=== PATIENT | female | born 1945 | race Caucasian/White ===

== ENCOUNTER 2020-03-12 12:17 | Inpatient (IN) ==
[2020-03-12] MEDS ORDERED: ONDANSETRON 4 MG/2 ML VIAL IV ONE (12:40)
--- NOTE | 2020-03-12 12:42 | Emergency Department Note ---
Nausea/Vomiting/Diarrhea HPI General Chief complaint: Nausea/Vomiting/Diarrhea Stated complaint: vomiting, diarrhea Time Seen by Provider: 03/12/20 12:19 Source: patient and family Mode of arrival: wheelchair Limitations: no limitations History of Present Illness HPI Narrative: Patient reports an abrupt onset of diarrhea and nausea that happened today. She arrives to the emergency department during my assessment complaining of chills and malaise. She does report that she has had a recent cough but denies shortness of breath. States that today she was forming her PT and developed chills body aches and had diarrhea. Had an episode of vomiting and vomited on her close. This patient's temperature during the HPI due to her statement of chills and got a temperature of 100 F oral. Related Data Home Medications Medication Instructions Recorded Confirmed metformin 1,000 mg PO BID 06/10/15 02/14/20 latanoprost 1 gtt OU HS 10/19/15 02/14/20 losartan 50 mg PO DAILY 08/17/18 02/14/20 amlodipine 5 mg tablet 10 mg PO DAILY tab 09/29/19 02/14/20 aspirin 81 mg tablet,delayed 81 mg PO QDAY 09/29/19 02/14/20 release atorvastatin 80 mg tablet 80 mg PO QDAY 09/29/19 02/14/20 bethanechol chloride 5 mg tablet 5 mg PO TID tab 09/29/19 02/14/20 clopidogrel 75 mg tablet 75 mg PO QDAY 09/29/19 02/14/20 escitalopram oxalate 10 mg tablet 10 mg PO QDAY 09/29/19 02/14/20 furosemide 20 mg tablet 20 mg PO QAM 09/29/19 02/14/20 gabapentin 100 mg capsule 200 mg PO QHS cap 09/29/19 02/14/20 insulin glargine 100 unit/mL 23 unit SUB-Q QHS ml 09/29/19 02/14/20 subcutaneous solution isosorbide mononitrate 30 mg 30 mg PO QAM 09/29/19 02/14/20 tablet,extended release 24 hr magnesium oxide 140 mg capsule 140 mg PO QDAY 02/14/20 02/14/20 nitroglycerin 0.4 mg sublingual 0.4 mg SUBLINGUAL Q5M PRN 02/14/20 02/14/20 tablet ropinirole 2 mg tablet 2 mg PO QDAY 02/14/20 02/14/20 Previous Rx's Medication Instructions Recorded albuterol sulfate 90 mcg/actuation 2 puff INHALATION .q4-6h PRN #8.5 g 09/29/19 aerosol inhaler Allergies Allergy/AdvReac Type Severity Reaction Status Date / Time pantoprazole AdvReac Unknown Diarrhea Verified 03/12/20 12:20 adhesive tape AdvReac Itching Verified 03/12/20 12:20 Review of Systems ROS ROS Narrative: Narrative: Constitutional: Reports fever, chills and sweats; Denies weakness Eyes: Denies eye discharge ENT ED: Denies throat pain Cardiovascular: Denies chest pain and palpitations Respiratory: Reports cough; Denies shortness of breath and phlegm Gastrointestinal: Reports as per HPI, nausea, vomiting and diarrhea Genitourinary: Denies dysuria Musculoskeletal: Reports as per HPI Integumentary: Denies rash and lesions Neurological: Reports as per HPI; Denies headache and numbness Endocrine: Reports fatigue Hematological/Lymphatic: Denies easy bleeding PFSH Narrative Patient History Narrative: Narrative: Medical/Surgical/Family History All Active Problems (Updated 03/13/20 @ 09:00 by SCOTTY Candelaria) Hypoxia (Acute) Pneumonia (Acute) Swelling of lower leg (Acute) Hyperglycemia due to type 2 diabetes mellitus (Acute) Cholelithiasis (Acute) Paresthesia of arm (Acute) Anxiety (Acute) Cough (Acute) Syncope (Acute) Dizziness (Acute) Palpitations (Acute) Chronic anticoagulation (Chronic) Diabetes mellitus type 2, uncontrolled, without complications (Chronic) Hypertension, essential (Chronic) Depression, major, recurrent, mild (Chronic) Status post cerebrovascular accident (Chronic) Anxiety, generalized (Chronic) Restless legs syndrome (RLS) (Chronic) Obesity (BMI 30.0-34.9) (Chronic) Glaucoma (Chronic) Medical History Anxiety, generalized (Chronic) Chronic anticoagulation (Chronic) clopidogrel Costalchondritis (Resolved) Depression, major, recurrent, mild (Chronic) Diabetes mellitus type 2, uncontrolled, without complications (Chronic) Esophageal stricture (Resolved) Glaucoma (Chronic) History of recurrent UTIs (Resolved) Hypertension, essential (Chronic) Obesity (BMI 30.0-34.9) (Chronic) Restless legs syndrome (RLS) (Chronic) Status post cerebrovascular accident (Chronic) right cerebellar; bilateral lacunar infarcts of basal ganglia Swelling of lower leg (Acute) TIA (transient ischemic attack) (Resolved) Surgical History History of carpal tunnel release (Acute) History of hysterectomy (Acute) History of tonsillectomy (Acute) S/P aortic valve replacement (Chronic) pig valve; Echo 07/18/18 unremarkable Social History Smoking Status: Former smoker Alcohol Intake Frequency: does not drink Substance Use: does not use Exam Narrative Narrative: Narrative: General Limitations: no limitations General appearance: Present alert and malaise Head Head: Present atraumatic and normocephalic Eye Eye: Present normal appearance and PERRL ENT ENT: Present normal exam and normal oropharynx Neck Neck: Present normal inspection and full ROM Chest Chest: Present normal inspection and symmetric chest wall rise; Absent tenderness Respiratory Respiratory: Present normal lung sounds bilaterally Cardiovascular Cardiovascular: Present regular rate and normal rhythm Adbominal Abdominal: Present soft and other (Patient denies abdominal pain nausea at this time. Main complaint during my assessment was malaise chills and body aches.); Absent tenderness, guarding and Bartholomew's sign Extremities Extremities: Present normal inspection and full ROM Back Back: Present normal inspection, CVA tenderness (R) and CVA tenderness (L) Neurological Neurological: Present alert and oriented X3 Psychiatric Psychiatric: Present normal affect Skin Skin: Present warm and dry Course Course Course Narrative: Patient does not appear to have symptoms of a viral nature. Possible pneumonia. Will perform basic labs and a chest x-ray to investigate for disease. Patient had a COVID test previously this year which was negative. Reports today's symptoms as noticeable today. Denies feeling ill yesterday. Reevaluation(s) Reevaluation #1: I was going to treat the patient out patiently for possible pneumonia. Patient's oxygen saturation was at 88 or 89 on room air would not maintain over 90% SPO2 without assistance of oxygen. Recommend that the patient be admitted observation due to low sats and check status tomorrow. Strays inconclusive for pneumonia (see report) Vital Signs Vital signs: Vital Signs Temperature 98.6 F 03/12/20 12:18 Pulse Rate 102 H 03/12/20 12:18 Respiratory Rate 03/12/20 12:18 Blood Pressure 142/95 03/12/20 12:18 Pulse Oximetry (%) 98 03/12/20 12:18 Temperature 98.9 F 03/13/20 07:26 Pulse Rate 66 03/13/20 03:49 Respiratory Rate 20 03/13/20 07:26 Blood Pressure 134/56 03/13/20 07:26 Pulse Oximetry (%) 95 03/13/20 07:26 MDM MDM Narrative Medical decision making narrative: Narrative: Lab Data Result diagrams: 03/13/20 05:25 03/13/20 05:25 Labs: Lab Results 03/12/20 03/12/20 03/12/20 Range/Units 12:50 12:50 12:50 WBC 11.9 H (4.50-11.00) K/mcL RBC 4.40 (3.59-5.38) M/mcL Hgb 12.1 (11.2-15.7) g/dL Hct 37.6 (34.1-44.9) % POC Hct 38.0 (36.0-48.0) % MCV 85.5 (80.0-100.0) fL MCH 27.5 (26.0-34.0) pg MCHC 32.2 (31.0-36.0) g/dL RDW 14.5 (11.5-14.5) % Plt Count 175 (140-440) K/mcL MPV 11.5 H (7.4-10.4) fL Gran % 83.9 H (38.0-78.0) % Lymph % (Auto) 10.2 L (15.5-49.0) % [place] % (Auto) 3.8 (1.0-12.0) % Eos % (Auto) 1.9 (0.0-7.0) % Baso % (Auto) 0.2 (0.0-2.0) % Gran # 10.02 H (1.80-8.00) K/mcL Lymph # (Auto) 1.22 L (1.50-4.80) K/mcL [place] # (Auto) 0.45 (0.10-0.90) K/mcL Eos # (Auto) 0.23 (0.00-0.70) K/mcL Baso # (Auto) 0.02 (0.00-0.30) K/mcL POC Sodium 139 (133-145) mmol/L Sodium 138 (133-145) mmol/L POC Potassium 4.5 (3.3-5.1) mmol/L Potassium 4.5 (3.3-5.1) mmol/L POC Chloride 99 (96-108) mmol/L Chloride 97 (96-108) mmol/L Carbon Dioxide 26 (22-30) mmol/L POC Total CO2 27 (22-30) mmol/L Anion Gap 15.0 (8-16) POC BUN 24 H (8-23) mg/dl BUN 23 (8-23) mg/dl Creatinine 1.3 H (0.6-1.1) mg/dl POC Creatinine 1.3 H (0.6-1.1) mg/dl GFR Calculation 40 Glucose 190 H (70-105) mg/dL POC Glucose 187 H (70-105) mg/dL Calcium 9.9 (8.6-10.4) mg/dl POC WB Ioniz Calcium 1.15 L (1.16-1.32) mmol/L Total Bilirubin 0.6 (0.0-1.0) mg/dL AST 13 (0-37) U/l ALT 9 (0-40) U/l Alkaline Phosphatase 94 (39-117) U/L Total Protein 7.3 (5.9-8.4) gm/dL Albumin 4.1 (3.2-5.2) gm/dL Globulin 3.2 (2.2-3.7) gm/dL Albumin/Globulin Ratio 1.3 (1.0-2.3) Procalcitonin 0.05 (<0.10) ng/mL Discharge Plan Patient/Caregiver Discharge Instructions Pt seen by SENIOR SALES MANAGER/PA only: No Clinical Impression: Hypoxia Pneumonia Qualifiers: Pneumonia type: due to unspecified organism Laterality: unspecified laterality Lung location: unspecified part of lung Qualified Code(s): J18.9 - Pneumonia, unspecified organism Patient Disposition: Xfer As Inpt ([facility]) Condition: Fair Discharge Date/Time: 03/12/20 19:52
[2020-03-12 13:00] LABS: POC Blood Urea Nitrogen 24 mg/dl (8-23); POC CO2 27 mmol/L (22-30); POC Calcium, Ionized 1.15 mmol/L (1.16-1.32); POC Chloride 99 mmol/L (96-108); POC Creatinine 1.3 mg/dl (0.6-1.1); POC Glucose, Random 187 mg/dL (70-105); POC Potassium 4.5 mmol/L (3.3-5.1); POC Sodium 139 mmol/L (133-145)
[2020-03-12] MEDS ORDERED: ACETAMINOPHEN 325 MG TABLET PO ONE (13:14)
[2020-03-12] MEDS ORDERED: 0.9 % SODIUM CHLORIDE 1,000 ML IV ONE (13:14)
[2020-03-12 13:47] LABS: Basophils # (Auto) 0.02 K/mcL (0.00-0.30); Basophils % (Auto) 0.2 % (0.0-2.0); Eosinophils # (Auto) 0.23 K/mcL (0.00-0.70); Eosinophils % (Auto) 1.9 % (0.0-7.0); Granulocytes % (Auto) 83.9 % (38.0-78.0); Hematocrit 37.6 % (34.1-44.9); Hemoglobin 12.1 g/dL (11.2-15.7); Lymphocytes # (Auto) 1.22 K/mcL (1.50-4.80); Lymphocytes % (Auto) 10.2 % (15.5-49.0); Mean Cell Volume 85.5 fL (80.0-100.0); Mean Corpuscular HGB Conc 32.2 g/dL (31.0-36.0); Mean Platelet Volume 11.5 fL (7.4-10.4); Monocytes # (Auto) 0.45 K/mcL (0.10-0.90); Monocytes % (Auto) 3.8 % (1.0-12.0); Platelet Count 175 K/mcL (140-440); Red Cell Distribution Width 14.5 % (11.5-14.5); WBC 11.9 K/mcL (4.50-11.00)
[2020-03-12 14:05] LABS: ALT/SGPT 9 U/l (0-40); AST/SGOT 13 U/l (0-37); Albumin 4.1 gm/dL (3.2-5.2); Albumin/Globulin Ratio 1.3 (1.0-2.3); Alkaline Phosphatase 94 U/L (39-117); Bilirubin,Total 0.6 mg/dL (0.0-1.0); Blood Urea Nitrogen 23 mg/dl (8-23); Calcium 9.9 mg/dl (8.6-10.4); Carbon Dioxide 26 mmol/L (22-30); Chloride 97 mmol/L (96-108); Globulin 3.2 gm/dL (2.2-3.7); Glomerular Filtration Rate 40; Glucose 190 mg/dL (70-105)
--- NOTE | 2020-03-12 14:22 | XRay Report ---
CLINICAL INFORMATION: fever COMPARISON: 09/29/2019 FINDINGS: Mild cardiomegaly is unchanged. Pacemaker leads in stable satisfactory position. Mediastinum and pulmonary vessels are normal. There is minor scattered scarring and/or atelectasis in the mid and lower lungs. No definite infiltrate. IMPRESSION: No definite infiltrate. If there is strong clinical support for pneumonia, suggest two-view upright chest x-ray in one to two days Interpreted and Authenticated by: Antoine Alavrez 03/12/20
[2020-03-12] MEDS ORDERED: AZITHROMYCIN 250 MG TABLET PO ONE (14:42)
[2020-03-12] MEDS ORDERED: IPRATROPIUM/ALBUTEROL 3 ML AMPUL.NEB NEB ONE (14:55)
[2020-03-12] MEDS ORDERED: rOPINIRole 1 MG TABLET PO ONE (15:47)
--- NOTE | 2020-03-12 18:40 | Internal Med History&Physical ---
HPI History of Present Illness Patient information: Note initiated : 03/12/20 at 6:39 pm Service Date, if different from initiated Date: [] Patient: Tianna Reyes a 74 y/o F admitted on for Vomiting, Diarrhea. Chief Complaint: [] History of present illness: Ms. Reyes is a 74 year old F with a history of CKD and hypertension who presented to the ER due to nausea and vomiting. As per patient, today patient developed nausea, vomiting, and diarrhea. She had 3 watery bowel movements. But she denies abdominal pain. She also complains of having coughing for days with a small amount of sputum. In the ER, she was found to have mild fever 100, and oxygen desaturation. Chest x-ray showed no evidence of infiltrate. But as per ER Valentino Alejandre, radiologist felt she could have a clinical pneumonia. When I saw this patient in the ER, other than the symptoms mentioned above, patient denied headache, dizziness, chest pain, shortness of breath, abdominal pain, or dysuria. Review of Systems All systems: reviewed and no additional remarkable complaints except as stated PFSH PFSH All Active Problems Swelling of lower leg (Acute) Hyperglycemia due to type 2 diabetes mellitus (Acute) Cholelithiasis (Acute) Paresthesia of arm (Acute) Anxiety (Acute) Cough (Acute) Syncope (Acute) Dizziness (Acute) Palpitations (Acute) Chronic anticoagulation (Chronic) Diabetes mellitus type 2, uncontrolled, without complications (Chronic) Hypertension, essential (Chronic) Depression, major, recurrent, mild (Chronic) Status post cerebrovascular accident (Chronic) Anxiety, generalized (Chronic) Restless legs syndrome (RLS) (Chronic) Obesity (BMI 30.0-34.9) (Chronic) Glaucoma (Chronic) Medical History Anxiety, generalized (Chronic) Chronic anticoagulation (Chronic) clopidogrel Costalchondritis (Resolved) Depression, major, recurrent, mild (Chronic) Diabetes mellitus type 2, uncontrolled, without complications (Chronic) Esophageal stricture (Resolved) Glaucoma (Chronic) History of recurrent UTIs (Resolved) Hypertension, essential (Chronic) Obesity (BMI 30.0-34.9) (Chronic) Restless legs syndrome (RLS) (Chronic) Status post cerebrovascular accident (Chronic) right cerebellar; bilateral lacunar infarcts of basal ganglia Swelling of lower leg (Acute) TIA (transient ischemic attack) (Resolved) Surgical History History of carpal tunnel release (Acute) History of hysterectomy (Acute) History of tonsillectomy (Acute) S/P aortic valve replacement (Chronic) pig valve; Echo 07/18/18 unremarkable Social History smoking status: Former smoker alcohol intake frequency: does not drink substance use type: does not use MEDS/ALLERGIES Home Medications and Allergies Home Medications Medication Instructions Recorded Confirmed Type metformin 1,000 mg PO BID 06/10/15 02/14/20 History latanoprost 1 gtt OU HS 10/19/15 02/14/20 History losartan 50 mg PO DAILY 08/17/18 02/14/20 History albuterol sulfate 90 mcg/actuation 2 puff INHALATION .q4-6h PRN #8.5 g 09/29/19 09/29/19 Rx aerosol inhaler amlodipine 5 mg tablet 10 mg PO DAILY tab 09/29/19 02/14/20 History aspirin 81 mg tablet,delayed 81 mg PO QDAY 09/29/19 02/14/20 History release atorvastatin 80 mg tablet 80 mg PO QDAY 09/29/19 02/14/20 History bethanechol chloride 5 mg tablet 5 mg PO TID tab 09/29/19 02/14/20 History clopidogrel 75 mg tablet 75 mg PO QDAY 09/29/19 02/14/20 History escitalopram oxalate 10 mg tablet 10 mg PO QDAY 09/29/19 02/14/20 History furosemide 20 mg tablet 20 mg PO QAM 09/29/19 02/14/20 History gabapentin 100 mg capsule 200 mg PO QHS cap 09/29/19 02/14/20 History insulin glargine 100 unit/mL 23 unit SUB-Q QHS ml 09/29/19 02/14/20 History subcutaneous solution isosorbide mononitrate 30 mg 30 mg PO QAM 09/29/19 02/14/20 History tablet,extended release 24 hr magnesium oxide 140 mg capsule 140 mg PO QDAY 02/14/20 02/14/20 History nitroglycerin 0.4 mg sublingual 0.4 mg SUBLINGUAL Q5M PRN 02/14/20 02/14/20 History tablet ropinirole 2 mg tablet 2 mg PO QDAY 02/14/20 02/14/20 History Allergies Allergy/AdvReac Type Severity Reaction Status Date / Time pantoprazole AdvReac Unknown Diarrhea Verified 03/12/20 12:20 adhesive tape AdvReac Itching Verified 03/12/20 12:20 EXAM Constitutional Vitals: Temp Pulse Resp BP Pulse Ox 99.3 F H 69 20 122/74 97 03/12/20 15:00 03/12/20 17:31 03/12/20 18:01 03/12/20 18:01 03/12/20 17:31 Additional findings Additional findings: General - No acute distress Eyes - PERRLA, EOM intact ENT no rhinorrhea, no noticeable or palpable swelling, no redness or rash around throat or on face Neck supple, no JVD, no thyromegaly Respiratory: Lungs - diminshed BS, no use of accessary muscles. Cardiovascular - RRR no m/r/g, GI - Normal bowel sounds, no distended, soft. Extremeties - No edema, cyanosis or clubbing. lower leg chronic erythema with scale-like skin Hemo/lymphatic/immune no lymphadenopathy Neurological Alert and oriented x 3, no focal neurological deficits. Psychiatry flat affect DATA Data Completed and Pending Labs: Labs from last 24 hours 03/12/20 03/12/20 12:50 12:50 WBC 11.9 H RBC 4.40 Hgb 12.1 Hct 37.6 POC Hct 38.0 MCV 85.5 MCH 27.5 MCHC 32.2 RDW 14.5 Plt Count 175 MPV 11.5 H Gran % 83.9 H Lymph % (Auto) 10.2 L [place] % (Auto) 3.8 Eos % (Auto) 1.9 Baso % (Auto) 0.2 Gran # 10.02 H Lymph # (Auto) 1.22 L [place] # (Auto) 0.45 Eos # (Auto) 0.23 Baso # (Auto) 0.02 POC Sodium 139 Sodium 138 POC Potassium 4.5 Potassium 4.5 POC Chloride 99 Chloride 97 Carbon Dioxide 26 POC Total CO2 27 Anion Gap 15.0 POC BUN 24 H BUN 23 Creatinine 1.3 H POC Creatinine 1.3 H GFR Calculation 40 Glucose 190 H POC Glucose 187 H Calcium 9.9 POC WB Ioniz Calcium 1.15 L Total Bilirubin 0.6 AST 13 ALT 9 Alkaline Phosphatase 94 Total Protein 7.3 Albumin 4.1 Globulin 3.2 Albumin/Globulin Ratio 1.3 A/P Narrative A/P Narrative: 1. Acute hypoxic respiratory failure Pulse ox Oxygen therapy to keep oxygen saturation greater than 92% 2. Clinical/early pneumonia Chest x-ray no evidence of infiltrate but radiologist felt possible clinical pneumonia Leukocytosis and mild fever Blood culture Sputum culture MRSA screening Respiratory panel COVID-[address] of the chest Considering oxygen desaturation, fever and leukocytosis, I would like to start antibiotics. 3. Leukocytosis Possibly caused by pneumonia or gastro enteritis Repeat a CBC in morning 4. CKD stage 3, creatinine 1.0 on 10/19/2015. Creatinine has been around 1.3 and 1.4 Avoid nephrotoxic meds Intake and output 5. DM type 2 with nephropathy Diabetic diet Insulin sliding scale Continue home medication 6. HTN Continue home medication 7. Acute gastroenteritis IV fluid Monitor 8. DVT prophylaxis: Heparin 9. CODE STATUS: Regional Training Manager Spent With Patient Time: Total time spent is greater than 50% in coordination of care (as documented) at patient's floor/unit and/or counseling patient:
[2020-03-12] MEDS ORDERED: ACETAMINOPHEN 325 MG TABLET PO PRN ×2 (18:59→20:06)
[2020-03-12] MEDS ORDERED: ONDANSETRON 4 MG/2 ML VIAL IV PRN ×2 (18:59→20:06)
[2020-03-12] MEDS ORDERED: IPRATROPIUM/ALBUTEROL 3 ML AMPUL.NEB NEB PRN ×2 (18:59→20:06)
[2020-03-12] MEDS ORDERED: cefTRIAXone 1 GM in DEXTROSE 5% IN WATER 50 ML IV SCH (19:00)
[2020-03-12] MEDS ORDERED: 0.9 % SODIUM CHLORIDE 1,000 ML IV SCH (19:00)
[2020-03-12] MEDS ORDERED: AZITHROMYCIN 500 MG in DEXTROSE 5% IN WATER 250 ML IV SCH (19:00)
[2020-03-12] MEDS ORDERED: DEXTROSE 50% 50 ML VIAL IV PRN ×2 (19:07→20:06)
[2020-03-12] MEDS ORDERED: DEXTROSE 31 GM ORAL.SUSP PO PRN ×2 (19:07→20:06)
[2020-03-12] MEDS ORDERED: INSULIN LISPRO 1 UNIT/0.01 ML UNIT SQ SCH (21:00)
[2020-03-12] MEDS ORDERED: HEPARIN 5,000 UNIT/ML VIAL SQ SCH (21:00)
[2020-03-12] MEDS ORDERED: 0.9 % SODIUM CHLORIDE 10 ML SYRINGE IV SCH (22:00)
[2020-03-12] MEDS: 0.9 % SODIUM CHLORIDE 1,000 ML IV SCH (22:18)
[2020-03-12] MEDS: INSULIN LISPRO 1 UNIT/0.01 ML UNIT SQ SCH (22:21)
[2020-03-12] MEDS: HEPARIN 5,000 UNIT/ML VIAL SQ SCH (22:21)
[2020-03-12] MEDS: 0.9 % SODIUM CHLORIDE 10 ML SYRINGE IV SCH (22:22)
[2020-03-12] MEDS: cefTRIAXone 1 GM VIAL IV SCH (22:52)
[2020-03-13] MEDS ORDERED: ZOLPIDEM 5 MG TABLET PO ONE (00:18)
[2020-03-13] MEDS ORDERED: ZOLPIDEM 5 MG TABLET ONE (01:50)
[2020-03-13 02:09] LABS: Appearance,Urine CLEAR; Bacteria,Urine 0 /hpf (0); Bilirubin,Urine NEG (NEG); Color,Urine YELLOW; Culture Indicated,Urine YES; Glucose,Urine (UA) NEGATIVE (NEG); Ketones,Urine NEG (NEG); Leukocyte Esterase,Urine 250 /uL (NEG); Mucus,Urine FEW /hpf (0); Nitrate,Urine NEG (NEG); Protein,Urine 100 mg/dL (NEG); Specific Gravity,Urine 1.017 (1.000-1.035); Urine Blood NEG mg/dL (<0.03); Urine Hyaline Cast 1 /lpf (0-2); Urine RBC 3 /hpf (0-1); Urine Squamous Epithelial Cell < 1 /hpf (0-4); Urine Transitional Epi Cells 1 /hpf (0-2); Urine WBC 40 /hpf (0-4); Urobilinogen,Urine NEG (NEG)
--- NOTE | 2020-03-13 04:27 | Cat Scan Report ---
CLINICAL INFORMATION: Cough and chest pain COMPARISON: 09/30/2018 CT angiogram TECHNIQUE: 0.625 mm axial slices were obtained from the lung apices through the bases without intravenous contrast. 2.5 mm Sagittal, coronal and axial reformatted images were processed and reviewed at bone, lung and soft tissue windows. 7 mm axial MIP images were also reconstructed to optimize pulmonary nodule detection.The exam was performed using radiation dose optimization techniques including, but not limited to, automated exposure control, adjustment of the mA and/or kV according to patient size and use of iterative reconstruction technique. FINDINGS: Pulmonary parenchymal windows show chronic bronchitis featuring elevated lung volumes, wall thickening/dilatation of the bronchi with scattered scarring in the periphery of both lungs - as previously seen. A few tiny bullae scattered within the apical regions are compatible with minimal emphysematous component. There are no infiltrates or nodules. Pleural spaces are normal. Since the previous CT, a graft has been placed into the ascending aorta including aortic root which extends to a pre-existing prosthetic aortic valve. The graft is retracted up to 8 mm from the ascending thoracic aorta wall which could potentially represent an endoleak. There is no periaortic aortic hemorrhage. The thoracic aorta demonstrates mild ectasia but there is no christel aneurysm: maximal aortic diameter in the ascending region is 3.4 cm. The heart is moderately enlarged. Pacemaker leads may in stable satisfactory position without location. Heavy calcific plaque seen in the coronary arteries and bypass grafts. These cannot be assessed without intravenous contrast. There is no adenopathy in the mediastinal, hilar or axillary regions. Small hiatal hernia is stable. Scattered nodules in the thyroid, ranging up to 14 mm low-attenuation lesion in the inferior left thyroid lobe, are unchanged from the prior CT and almost certainly benign. Bone windows show no focal osseous abnormality. Images through the superior abdomen show multiple small stones in the gallbladder body and neck ranging up to 8 mm. Gallbladder is, otherwise, normal. The noncontrasted visualized liver, spleen, adrenal glands, pancreas and kidneys are normal. IMPRESSION: 1. No evidence of pneumonia or other acute cardiopulmonary process. 2. 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 The graft is retracted 8 mm from the [place] wall at the root region which could potentially represent an endoleak. Suggest: cardiology consult and CT thoracic aorta angiogram. 3. Chronic bronchitis with scattered scarring throughout both lungs - stable. 4. Cholelithiasis 5. Small hiatal hernia 6. Multinodular adenomatous thyroid - stable Interpreted and Authenticated by: Antoine Alvarez 03/13/20
[2020-03-13] MEDS: 0.9 % SODIUM CHLORIDE 10 ML SYRINGE IV SCH ×4 (04:51→23:15)
[2020-03-13] MEDS ORDERED: PANTOPRAZOLE 40 MG TABLET PO SCH (07:30)
[2020-03-13 07:57] LABS: ALT/SGPT 8 U/l (0-40); AST/SGOT 13 U/l (0-37); Albumin 3.1 gm/dL (3.2-5.2); Albumin/Globulin Ratio 1.2 (1.0-2.3); Alkaline Phosphatase 66 U/L (39-117); Basophils # (Auto) 0.02 K/mcL (0.00-0.30); Basophils % (Auto) 0.3 % (0.0-2.0); Bilirubin,Total 0.3 mg/dL (0.0-1.0); Blood Urea Nitrogen 25 mg/dl (8-23); Calcium 8.6 mg/dl (8.6-10.4); Carbon Dioxide 26 mmol/L (22-30); Chloride 101 mmol/L (96-108); Eosinophils # (Auto) 0.26 K/mcL (0.00-0.70); Eosinophils % (Auto) 3.6 % (0.0-7.0); Globulin 2.5 gm/dL (2.2-3.7); Glomerular Filtration Rate 40; Glucose 127 mg/dL (70-105); Hematocrit 28.9 % (34.1-44.9); Hemoglobin 8.9 g/dL (11.2-15.7); Lymphocytes % (Auto) 26.5 % (15.5-49.0); Mean Cell Volume 87.8 fL (80.0-100.0); Mean Corpuscular HGB Conc 30.8 g/dL (31.0-36.0); Mean Platelet Volume 12.2 fL (7.4-10.4); Monocytes # (Auto) 0.47 K/mcL (0.10-0.90); Monocytes % (Auto) 6.6 % (1.0-12.0); Phosphorous 3.5 mg/dL (2.7-4.5); Platelet Count 123 K/mcL (140-440); RBC 3.29 M/mcL (3.59-5.38); Red Cell Distribution Width 14.5 % (11.5-14.5); WBC 7.2 K/mcL (4.50-11.00)
[2020-03-13] MEDS: INSULIN LISPRO 1 UNIT/0.01 ML UNIT SQ SCH ×4 (08:15→21:34)
[2020-03-13] MEDS ORDERED: LOSARTAN 50 MG TABLET PO SCH (09:00)
[2020-03-13] MEDS ORDERED: CLOPIDOGREL 75 MG TABLET PO SCH ×2 (09:00)
[2020-03-13] MEDS ORDERED: ATORVASTATIN 10 MG TABLET PO SCH (09:00)
[2020-03-13] MEDS ORDERED: cefTRIAXone 1 GM in DEXTROSE 5% IN WATER 50 ML IV SCH (09:00)
[2020-03-13] MEDS ORDERED: amLODIPine 10 MG TABLET PO SCH (09:00)
[2020-03-13] MEDS ORDERED: ASPIRIN 81 MG TAB.CHEW PO SCH (09:00)
[2020-03-13] MEDS ORDERED: AZITHROMYCIN 500 MG in DEXTROSE 5% IN WATER 250 ML IV SCH (10:00)
[2020-03-13] MEDS: LOSARTAN 50 MG TABLET PO SCH (10:31)
[2020-03-13] MEDS: ASPIRIN 81 MG TAB.CHEW PO SCH (10:31)
[2020-03-13] MEDS: ATORVASTATIN 10 MG TABLET PO SCH (10:32)
[2020-03-13] MEDS: amLODIPine 10 MG TABLET PO SCH (10:34)
[2020-03-13] MEDS: HEPARIN 5,000 UNIT/ML VIAL SQ SCH ×2 (10:36→21:35)
[2020-03-13] MEDS: cefTRIAXone 1 GM VIAL IV SCH (10:38)
[2020-03-13] MEDS: 0.9 % SODIUM CHLORIDE 1,000 ML IV SCH (11:48)
--- NOTE | 2020-03-13 12:58 | Internal Med Progress Note ---
SUBJECTIVE Subjective Patient information: Note initiated : 03/13/20 at 12:57 pm Service Date, if different from initiated Date: [] Patient: Tianna Reyes 74 y/o F admitted on 03/12/20 for Vomiting, Diarrhea. Chief Complaint: [] Patient doing very well and feels fine. No new complaints. She is 1.[address] showed - "1. No evidence of pneumonia or other acute cardiopulmonary process. 2. 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 The graft is retracted 8 mm from the [place] wall at the root region which could potentially represent an endoleak. Suggest: cardiology consult and CT thoracic aorta angiogram. 3. Chronic bronchitis with scattered scarring throughout both lungs - stable. 4. Cholelithiasis 5. Small hiatal hernia 6. Multinodular adenomatous thyroid - stable" Discussed to be the medical associate Dr. Ramsay at [facility] who suggested to c ontact Dr. Thurman. But Dr. Thurman is on procedure now. I also called [facility] in [place] and hope to speak to CT surgeon. Waifing for calling back. Constitutional Vitals: Vital Signs Temp Pulse Resp BP Pulse Ox 99.1 F H 66 16 147/61 97 03/13/20 11:28 03/13/20 03:49 03/13/20 11:28 03/13/20 11:28 03/13/20 11:28 Period Temp Pulse Resp BP Sys/Mont[place] Pulse Ox Last 24 Hr 98.6 F-100.0 F 59-82 13-20 107-160/45-74 87-99 Intake and Output 03/12/20 03/13/20 03/13/20 21:59 05:59 13:59 Intake Total 1000 0 1000 Output Total 150 450 Balance 1000 -150 550 Weight 93.61 kg Intake & Output: Intake & Output 03/12/20 03/13/20 03/13/20 21:59 05:59 13:59 Intake Total 1000 0 1000 Output Total 150 450 Balance 1000 -150 550 Weight 93.61 kg Intake: IV 1000 1000 Sodium Chloride 0.9% 1,000 ml @ 1000 1000 75 mls/hr IV .[id number] [facility] Rx#: [id number] Oral 0 Output: Void Amount 150 450 Other: Urine Appearance Clear Urine Color Pale Dark Yellow Urine Odor Strong Additional findings Additional findings: General - No acute distress Eyes - PERRLA, EOM intact ENT no rhinorrhea, no noticeable or palpable swelling, no redness or rash around throat or on face Neck supple, no JVD, no thyromegaly Respiratory: Lungs - diminshed BS, no use of accessary muscles. Cardiovascular - RRR no m/r/g, GI - Normal bowel sounds, no distended, soft. Extremeties - No edema, cyanosis or clubbing. lower leg chronic erythema with scale-like skin Hemo/lymphatic/immune no lymphadenopathy Neurological Alert and oriented x 3, no focal neurological deficits. Psychiatry flat affect OBJ DATA Labs CBC & Chem 7: 03/13/20 05:25 03/13/20 05:25 Labs: Abnormal Lab Results 03/13/20 03/13/20 03/13/20 05:25 05:25 00:47 WBC RBC 3.29 L Hgb 8.9 L Hct 28.9 L MCHC 30.8 L Plt Count 123 L MPV 12.2 H Gran % Lymph % (Auto) Gran # Lymph # (Auto) POC BUN BUN 25 H Creatinine 1.3 H POC Creatinine Glucose 127 H POC Glucose POC WB Ioniz Calcium Magnesium 1.3 L NT-Pro-B Natriuret Pep 1466.0 H Total Protein 5.6 L Albumin 3.1 L Urine Protein 100 A Ur Leukocyte Esterase 250 A Urine RBC 3 H Urine WBC 40 H 03/12/20 03/12/20 12:50 12:50 WBC 11.9 H RBC Hgb Hct MCHC Plt Count MPV 11.5 H Gran % 83.9 H Lymph % (Auto) 10.2 L Gran # 10.02 H Lymph # (Auto) 1.22 L POC BUN 24 H BUN Creatinine 1.3 H POC Creatinine 1.3 H Glucose 190 H POC Glucose 187 H POC WB Ioniz Calcium 1.15 L Magnesium NT-Pro-B Natriuret Pep Total Protein Albumin Urine Protein Ur Leukocyte Esterase Urine RBC Urine WBC Meds: Medications Acetaminophen (Tylenol) 650 mg PO Q6HP PRN; Protocol PRN Reason: Per Pain Protocol/Fever > 101 Albuterol/Ipratropium (Duoneb) 3 ml NEB Q6HRT PRN PRN Reason: Shortness Of Breath Amlodipine Besylate (Norvasc) 10 mg PO DAILY [facility] Last Admin: 03/13/20 10:34 Dose: 10 mg Documented by: Aspirin (Aspirin) 81 mg PO DAILY [facility] Last Admin: 03/13/20 10:31 Dose: 81 mg Documented by: Atorvastatin Calcium (Lipitor) 80 mg PO DAILY [facility] Last Admin: 03/13/20 10:32 Dose: 80 mg Documented by: Ceftriaxone Sodium (Rocephin) 1 gm IV Q24H [facility] Last Admin: 03/13/20 10:38 Dose: 1 gm Documented by: Clopidogrel Bisulfate (Plavix) 75 mg PO DAILY [facility] Last Admin: 03/13/20 10:34 Dose: 75 mg Documented by: Dextrose (Dextrose 50%) 0 ml IV UD PRN PRN Reason: Hypoglycemia Diagnostic Test (Pha) (Accu-Chek) 1 each FS [facility] Last Admin: 03/13/20 11:41 Dose: 1 each Documented by: Glucose (Insta-Glucose) 15 gm PO PRN PRN PRN Reason: Hypoglycemia Heparin Sodium (Porcine) (Heparin) 5,000 unit SQ Q12 [facility] Last Admin: 03/13/20 10:36 Dose: 5,000 unit Documented by: Azithromycin 500 mg/ Dextrose 250 mls @ 250 mls/hr IV Q24H [facility]; Protocol Stop: 03/14/20 09:59 Last Admin: 03/13/20 11:43 Dose: 250 mls/hr Documented by: Sodium Chloride (Sodium Chloride 0.9%) 1,000 mls @ 75 mls/hr IV .[id number] [facility] Last Admin: 03/13/20 11:48 Dose: 75 mls/hr Documented by: Insulin Human Lispro (Humalog) 0 unit SQ [facility]; Protocol Last Admin: 03/13/20 11:45 Dose: 2 units Documented by: Losartan Potassium (Cozaar) 50 mg PO DAILY [facility] Last Admin: 03/13/20 10:31 Dose: 50 mg Documented by: Ondansetron HCl (Zofran) 4 mg IV Q6HP PRN PRN Reason: Nausea And Vomiting Last Admin: 03/13/20 11:40 Dose: 4 mg Documented by: Sodium Chloride (Saline Flush) 10 ml IV Q8 [facility] Last Admin: 03/13/20 04:51 Dose: Not Given Documented by: A/P Narrative A/P Narrative: 1. Acute hypoxic respiratory failure Pulse ox Oxygen therapy to keep oxygen saturation greater than 92% 2. Clinical/early pneumonia Chest x-ray no evidence of infiltrate but radiologist felt possible clinical pneumonia Leukocytosis and mild fever Blood culture Sputum culture MRSA screening Respiratory panel COVID-[address] of the chest Considering oxygen desaturation, fever and leukocytosis, I would like to start antibiotics. 3. Leukocytosis Possibly caused by pneumonia or gastro enteritis Repeat a CBC in morning 4. CKD stage 3, creatinine 1.0 on 10/19/2015. Creatinine has been around 1.3 and 1.4 Avoid nephrotoxic meds Intake and output 5. DM type 2 with nephropathy Diabetic diet Insulin sliding scale Continue home medication 6. HTN Continue home medication 7. Acute gastroenteritis IV fluid Monitor 8. Endovascular graft retraction/endoleak? Discussed to be the medical associate Dr. Ramsay at [facility] who suggested to contact Dr. Thurman. But Dr. Thruman is on procedure now. I also called [facility] in [place] and hope to speak to CT surgeon. Waifing for calling back. 8. DVT prophylaxis: Heparin 9. 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
[2020-03-13] MEDS ORDERED: MAGNESIUM SULFATE 8.12 MEQ in DEXTROSE 5% IN WATER 50 ML IV ONE (13:59)
--- NOTE | 2020-03-13 14:04 | Internal Med Progress Note ---
SUBJECTIVE Subjective Patient information: Note initiated : 03/13/20 at 1:50 pm Service Date, if different from initiated Date: [] Patient: Tianna Reyes a 74 y/o F admitted on 03/12/20 for Vomiting, Diarrhea. Chief Complaint: [] Interval history: History of present illness: Ms. Reyes is a 74 year old F with a history of CKD and hypertension who presented to the ER due to nausea and vomiting. As per patient, today patient developed nausea, vomiting, and diarrhea. She had 3 watery bowel movements. But she denies abdominal pain. She also complains of having coughing for days with a small amount of sputum. In the ER, she was found to have mild fever 100, and oxygen desaturation. Chest x-ray showed no evidence of infiltrate. But as per ER Valentino Alejandre, radiologist felt she could have a clinical pneumonia. When I saw this patient in the ER, other than the symptoms mentioned above, patient denied headache, dizziness, chest pain, shortness of breath, abdominal pain, or dysuria. 03/13 Patient doing very well and feels fine. No new complaints. She is 1.[address] showed - "1. No evidence of pneumonia or other acute cardiopulmonary process. 2. 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 The graft is retracted 8 mm from the [place] wall at the root region which could potentially represent an endoleak. Suggest: cardiology consult and CT thoracic aorta angiogram. 3. Chronic bronchitis with scattered scarring throughout both lungs - stable. 4. Cholelithiasis 5. Small hiatal hernia 6. Multinodular adenomatous thyroid - stable" Discussed to be the manager new product Dr. Ramsay at [facility] who suggested to contact Dr. Thurman. But Dr. Thurman is on procedure now. I also called [facility] in [place] and hope to speak to CT surgeon. Waifing for calling back. *CT surgeon Dr. Lee called me back. Dr. Lee believes that if pt does not have big murmur or ischemic symptoms, CT chest may not be accurate. Will order echo. please f/u echo result. Constitutional Vitals: Vital Signs Temp Pulse Resp BP Pulse Ox 99.1 F H 66 16 147/61 97 03/13/20 11:28 03/13/20 03:49 03/13/20 11:28 03/13/20 11:28 03/13/20 11:28 Period Temp Pulse Resp BP Sys/[place] Pulse Ox Last 24 Hr 98.6 F-99.3 F 59-75 13-20 107-147/45-74 87-99 Intake and Output 03/12/20 03/13/20 03/13/20 21:59 05:59 13:59 Intake Total 1000 0 1000 Output Total 150 450 Balance 1000 -150 550 Weight 93.61 kg Intake & Output: Intake & Output 03/12/20 03/13/20 03/13/20 21:59 05:59 13:59 Intake Total 1000 0 1000 Output Total 150 450 Balance 1000 -150 550 Weight 93.61 kg Intake: IV 1000 1000 Sodium Chloride 0.9% 1,000 ml @ 1000 1000 75 mls/hr IV .[id number] [facility] Rx#: [id number] Oral 0 Output: Void Amount 150 450 Other: Urine Appearance Clear Urine Color Pale Dark Yellow Urine Odor Strong Exam: General: Alert, Awake, No acute Distress Eyes/N/T: EOMI, Head/Neck: neck supple, CV: RRR, No murmurs, Pulm: Diminished bilaterally , no wheezing Abd: soft, nontender, +BS x4 Ext: no clubbing/cyanosis/edema Neuro: Alert, no focal deficits, moves all extremities, Skin: warm/dry OBJ DATA Labs CBC & Chem 7: 03/13/20 05:25 03/13/20 05:25 Labs: Abnormal Lab Results 03/13/20 03/13/20 03/13/20 05:25 05:25 00:47 WBC RBC 3.29 L Hgb 8.9 L Hct 28.9 L MCHC 30.8 L Plt Count 123 L MPV 12.2 H Gran % Lymph % (Auto) Gran # Lymph # (Auto) POC BUN BUN 25 H Creatinine 1.3 H POC Creatinine Glucose 127 H POC Glucose POC WB Ioniz Calcium Magnesium 1.3 L NT-Pro-B Natriuret Pep 1466.0 H Total Protein 5.6 L Albumin 3.1 L Urine Protein 100 A Ur Leukocyte Esterase 250 A Urine RBC 3 H Urine WBC 40 H 03/12/20 03/12/20 12:50 12:50 WBC 11.9 H RBC Hgb Hct MCHC Plt Count MPV 11.5 H Gran % 83.9 H Lymph % (Auto) 10.2 L Gran # 10.02 H Lymph # (Auto) 1.22 L POC BUN 24 H BUN Creatinine 1.3 H POC Creatinine 1.3 H Glucose 190 H POC Glucose 187 H POC WB Ioniz Calcium 1.15 L Magnesium NT-Pro-B Natriuret Pep Total Protein Albumin Urine Protein Ur Leukocyte Esterase Urine RBC Urine WBC Meds: Medications Acetaminophen (Tylenol) 650 mg PO Q6HP PRN; Protocol PRN Reason: Per Pain Protocol/Fever > 101 Albuterol/Ipratropium (Duoneb) 3 ml NEB Q6HRT PRN PRN Reason: Shortness Of Breath Amlodipine Besylate (Norvasc) 10 mg PO DAILY [facility] Last Admin: 03/13/20 10:34 Dose: 10 mg Documented by: Aspirin (Aspirin) 81 mg PO DAILY [facility] Last Admin: 03/13/20 10:31 Dose: 81 mg Documented by: Atorvastatin Calcium (Lipitor) 80 mg PO DAILY [facility] Last Admin: 03/13/20 10:32 Dose: 80 mg Documented by: Ceftriaxone Sodium (Rocephin) 1 gm IV Q24H [facility] Last Admin: 03/13/20 10:38 Dose: 1 gm Documented by: Clopidogrel Bisulfate (Plavix) 75 mg PO DAILY [facility] Last Admin: 03/13/20 10:34 Dose: 75 mg Documented by: Dextrose (Dextrose 50%) 0 ml IV UD PRN PRN Reason: Hypoglycemia Diagnostic Test (Pha) (Accu-Chek) 1 each FS ACHS [facility] Last Admin: 03/13/20 11:41 Dose: 1 each Documented by: Glucose (Insta-Glucose) 15 gm PO PRN PRN PRN Reason: Hypoglycemia Heparin Sodium (Porcine) (Heparin) 5,000 unit SQ Q12 [facility] Last Admin: 03/13/20 10:36 Dose: 5,000 unit Documented by: Azithromycin 500 mg/ Dextrose 250 mls @ 250 mls/hr IV Q24H [facility]; Protocol Stop: 03/14/20 09:59 Last Admin: 03/13/20 11:43 Dose: 250 mls/hr Documented by: Sodium Chloride (Sodium Chloride 0.9%) 1,000 mls @ 75 mls/hr IV .[id number] [facility] Last Admin: 03/13/20 11:48 Dose: 75 mls/hr Documented by: Insulin Human Lispro (Humalog) 0 unit SQ ACHS [facility]; Protocol Last Admin: 03/13/20 11:45 Dose: 2 units Documented by: Losartan Potassium (Cozaar) 50 mg PO DAILY [facility] Last Admin: 03/13/20 10:31 Dose: 50 mg Documented by: Ondansetron HCl (Zofran) 4 mg IV Q6HP PRN PRN Reason: Nausea And Vomiting Last Admin: 03/13/20 11:40 Dose: 4 mg Documented by: Sodium Chloride (Saline Flush) 10 ml IV Q8 [facility] Last Admin: 03/13/20 04:51 Dose: Not Given Documented by: A/P Narrative A/P Narrative: A: *Acute gastroenteritis with N/V: *Acute hypoxic respiratory failure: -on 1.5L NC *?Clinical/early pneumonia: -Respiratory panel/COVID-19 negative -CT with copd changes *UTI: *CKD III: Creatinine has been around 1.3 and 1.4 *DM type 2 with nephropathy:6. HTN *Endovascular graft retraction/endoleak? -Discussed with CT surgeon Dr. Lee who believes if pt doesn't have loud murmur or ischemic symptoms then CT chest may not be accurate and suggested echo. 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
[2020-03-13] MEDS ORDERED: traMADol 50 MG TABLET PO PRN (19:32)
[2020-03-13] MEDS ORDERED: NITROGLYCERIN 0.4 MG TAB.SUBL SL PRN (19:32)
[2020-03-13] MEDS ORDERED: ALBUTEROL SULFATE 200 PUFF INHALER INH PRN (19:32)
[2020-03-13] MEDS ORDERED: FUROSEMIDE 20 MG TABLET PO PRN (19:32)
[2020-03-13] MEDS ORDERED: ATORVASTATIN 80 MG PO SCH (21:00)
[2020-03-13] MEDS: INSULIN GLARGINE, HUMAN 1 UNIT/0.01 ML SQ SCH (21:33)
[2020-03-13] MEDS: GABAPENTIN 100 MG CAPSULE PO SCH (21:34)
[2020-03-13] MEDS: rOPINIRole 1 MG TABLET PO SCH (21:34)
[2020-03-13] MEDS: BETHANECHOL 10 MG TABLET PO SCH (21:35)
[2020-03-13] MEDS: LATANOPROST OPHTH DROPS 2.5ML BOTTLE OU SCH (21:35)
[2020-03-14] MEDS: 0.9 % SODIUM CHLORIDE 10 ML SYRINGE IV SCH ×3 (05:03→21:39)
--- NOTE | 2020-03-14 07:09 | Internal Med Progress Note ---
SUBJECTIVE Subjective Patient information: Note initiated : 03/14/20 at 7:03 am Service Date, if different from initiated Date: [] Patient: Tianna Reyes a 74 y/o F admitted on 03/12/20 for Vomiting, Diarrhea. Chief Complaint: [] Interval history: History of present illness: Ms. Reyes is a 74 year old F with a history of CKD and hypertension who presented to the ER due to nausea and vomiting. As per patient, today patient developed nausea, vomiting, and diarrhea. She had 3 watery bowel movements. But she denies abdominal pain. She also complains of having coughing for days with a small amount of sputum. In the ER, she was found to have mild fever 100, and oxygen desaturation. Chest x-ray showed no evidence of infiltrate. But as per ER Valentino Alejandre, radiologist felt she could have a clinical pneumonia. When I saw this patient in the ER, other than the symptoms mentioned above, patient denied headache, dizziness, chest pain, shortness of breath, abdominal pain, or dysuria. 03/13 Patient doing very well and feels fine. No new complaints. She is 1.[address] showed - "1. No evidence of pneumonia or other acute cardiopulmonary process. 2. 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 The graft is retracted 8 mm from the [place] wall at the root region which could potentially represent an endoleak. Suggest: cardiology consult and CT thoracic aorta angiogram. 3. Chronic bronchitis with scattered scarring throughout both lungs - stable. 4. Cholelithiasis 5. Small hiatal hernia 6. Multinodular adenomatous thyroid - stable" Discussed to be the supervisor stone Dr. Ramsay at [facility] who suggested to contact Dr. Thurman. But Dr. Thurman is on procedure now. I also called [facility] in [place] and hope to speak to CT surgeon. Ceciliaing for calling back. *CT surgeon Dr. Lee called me back. Dr. Lee believes that if pt does not have big murmur or ischemic symptoms, CT chest may not be accurate. Will order echo. 03/14 feeling better overall, still feels a little ill. no new complaints. No nausea vomiting. When she did have nausea vomiting prior to coming in she had a mask on so suspect she might of had a little of aspiration from the event. Review of Systems: denies headache/fever/chills/nausea/vomiting/chest or abdominal pain/cough/dyspnea/diarrhea. Otherwise see above. Constitutional Vitals: Vital Signs Temp Pulse Resp BP Pulse Ox 99 F 76 18 138/66 97 03/14/20 06:56 03/14/20 06:56 03/14/20 06:56 03/14/20 06:56 03/14/20 06:56 Period Temp Pulse Resp BP Sys/[place] Pulse Ox Last 24 Hr 97.7 F-99.2 F 64-76 16-20 121-148/54-89 91-97 Intake and Output 03/13/20 03/14/20 03/14/20 21:59 05:59 13:59 Intake Total 740 1500 Output Total 1250 1600 Balance -510 -100 Weight 94.393 kg Intake & Output: Intake & Output 03/13/20 03/14/20 03/14/20 21:59 05:59 13:59 Intake Total 740 1500 Output Total 1250 1600 Balance -510 -100 Weight 94.393 kg Intake: IV 50 1000 Sodium Chloride 0.9% 1,000 ml @ 1000 75 mls/hr IV .[id number] [facility] Rx#: [id number] Magnesium Sulfate 8.12 Meq In 50 Dextrose 5% in Water 50 ml @ 52 mls/hr IV ONCE ONE Rx#: [id number] Oral 690 500 Output: Void Amount 1250 1600 Other: Meal Dinner Percent of Meal Consumed 100% Feeding Ability Independent Urine Appearance Clear Clear Urine Color Bright Yellow Bright Yellow Urine Odor Normal Exam: General: Alert, Awake, No acute Distress Eyes/N/T: EOMI, Head/Neck: neck supple, CV: RRR, 2/6 SM Pulm: Diminished bilaterally , no rhonchi Abd: soft, nontender, +BS x4 Ext: no clubbing/cyanosis, left leg with minimal edema improved Neuro: Alert, no focal deficits, moves all extremities, Skin: warm/dry OBJ DATA Labs CBC & Chem 7: 03/13/20 05:25 03/13/20 05:25 Labs: Abnormal Lab Results 03/13/20 03/13/20 03/13/20 05:25 05:25 00:47 WBC RBC 3.29 L Hgb 8.9 L Hct 28.9 L MCHC 30.8 L Plt Count 123 L MPV 12.2 H Gran % Lymph % (Auto) Gran # Lymph # (Auto) POC BUN BUN 25 H Creatinine 1.3 H POC Creatinine Glucose 127 H POC Glucose POC WB Ioniz Calcium Magnesium 1.3 L NT-Pro-B Natriuret Pep 1466.0 H Total Protein 5.6 L Albumin 3.1 L Urine Protein 100 A Ur Leukocyte Esterase 250 A Urine RBC 3 H Urine WBC 40 H 03/12/20 03/12/20 12:50 12:50 WBC 11.9 H RBC Hgb Hct MCHC Plt Count MPV 11.5 H Gran % 83.9 H Lymph % (Auto) 10.2 L Gran # 10.02 H Lymph # (Auto) 1.22 L POC BUN 24 H BUN Creatinine 1.3 H POC Creatinine 1.3 H Glucose 190 H POC Glucose 187 H POC WB Ioniz Calcium 1.15 L Magnesium NT-Pro-B Natriuret Pep Total Protein Albumin Urine Protein Ur Leukocyte Esterase Urine RBC Urine WBC Meds: Medications Acetaminophen (Tylenol) 650 mg PO Q6HP PRN; Protocol PRN Reason: Per Pain Protocol/Fever > 101 Albuterol Sulfate (Ventolin) 2 puff INH Q4-6HP PRN PRN Reason: cough, shortness of breath, wh Albuterol/Ipratropium (Duoneb) 3 ml NEB Q6HRT PRN PRN Reason: Shortness Of Breath Amlodipine Besylate (Norvasc) 10 mg PO DAILY [facility] Last Admin: 03/13/20 10:34 Dose: 10 mg Documented by: Aspirin (Aspirin) 81 mg PO DAILY [facility] Last Admin: 03/13/20 10:31 Dose: 81 mg Documented by: Atorvastatin Calcium (Lipitor) 80 mg PO DAILY [facility] Last Admin: 03/13/20 10:32 Dose: 80 mg Documented by: Bethanechol Chloride (Urecholine) 5 mg PO TID [facility] Last Admin: 03/13/20 21:35 Dose: Not Given Documented by: Ceftriaxone Sodium (Rocephin) 1 gm IV Q24H [facility] Last Admin: 03/13/20 10:38 Dose: 1 gm Documented by: Dextrose (Dextrose 50%) 0 ml IV UD PRN PRN Reason: Hypoglycemia Diagnostic Test (Pha) (Accu-Chek) 1 each FS ACHS [facility] Last Admin: 03/13/20 21:33 Dose: 1 each Documented by: Escitalopram Oxalate (Lexapro) 10 mg PO QDAY [facility] Furosemide (Lasix) 20 mg PO QDAY PRN PRN Reason: Edema Gabapentin (Neurontin) 200 mg PO QHS [facility] Last Admin: 03/13/20 21:34 Dose: 200 mg Documented by: Glucose (Insta-Glucose) 15 gm PO PRN PRN PRN Reason: Hypoglycemia Heparin Sodium (Porcine) (Heparin) 5,000 unit SQ Q12 [facility] Last Admin: 03/13/20 21:35 Dose: 5,000 unit Documented by: Azithromycin 500 mg/ Dextrose 250 mls @ 250 mls/hr IV Q24H [facility]; Protocol Stop: 03/14/20 09:59 Last Infusion: 03/13/20 12:45 Dose: Infused Documented by: Insulin Glargine (Lantus) 23 unit SQ QHS [facility] Last Admin: 03/13/20 21:33 Dose: 23 unit Documented by: Insulin Human Lispro (Humalog) 0 unit SQ ACHS [facility]; Protocol Last Admin: 03/13/20 21:34 Dose: 2 units Documented by: Isosorbide Mononitrate (Imdur) 30 mg PO QAM [facility] Latanoprost (Xalatan Ophth Drops) 1 gtt OU HS [facility] Last Admin: 03/13/20 21:35 Dose: Not Given Documented by: Losartan Potassium (Cozaar) 50 mg PO DAILY [facility] Last Admin: 03/13/20 10:31 Dose: 50 mg Documented by: Nitroglycerin (Nitrostat) 0.4 mg SL Q5M PRN PRN Reason: Chest Pain Ondansetron HCl (Zofran) 4 mg IV Q6HP PRN PRN Reason: Nausea And Vomiting Last Admin: 03/13/20 11:40 Dose: 4 mg Documented by: Ropinirole HCl (Requip) 2 mg PO QID [facility] Last Admin: 03/13/20 21:34 Dose: 2 mg Documented by: Sodium Chloride (Saline Flush) 10 ml IV Q8 [facility] Last Admin: 03/14/20 05:03 Dose: Not Given Documented by: Tramadol HCl (Ultram) 50 mg PO Q6H [facility]; Protocol PRN Reason: Breakthrough Pain A/P Narrative A/P Narrative: A: *Acute gastroenteritis with N/V: *Acute hypoxic respiratory failure: likely aspiration from above -on 1L NC *?Clinical/early pneumonia vs microaspiration from N/V: -Respiratory panel/COVID-19 negative -CT with copd changes *UTI(e coli): *CKD III: Creatinine has been around 1.3 and 1.4 *DM type 2 with nephropathy:6. HTN *Endovascular graft retraction/endoleak? -Discussed with CT surgeon Dr. Lee who believes if pt doesn't have loud murmur or ischemic symptoms then CT chest may not be accurate and suggested echo. 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
[2020-03-14 08:30] LABS: ALT/SGPT 8 U/l (0-40); AST/SGOT 16 U/l (0-37); Albumin 3.3 gm/dL (3.2-5.2); Albumin/Globulin Ratio 1.2 (1.0-2.3); Alkaline Phosphatase 66 U/L (39-117); Bilirubin,Direct < 0.2 mg/dL (0.0-0.3); Bilirubin,Total 0.3 mg/dL (0.0-1.0); Blood Urea Nitrogen 22 mg/dl (8-23); Calcium 8.8 mg/dl (8.6-10.4); Carbon Dioxide 26 mmol/L (22-30); Chloride 102 mmol/L (96-108); Globulin 2.7 gm/dL (2.2-3.7); Glomerular Filtration Rate 40; Glucose 65 mg/dL (70-105); Lactate Dehydrogenase 219 U/L (94-250); Phosphorous 3.9 mg/dL (2.7-4.5); Triglycerides 109 mg/dl (<150); Uric Acid 6.3 mg/dL (2.5-8.0)
[2020-03-14] MEDS: ISOSORBIDE MONONITRATE 30 MG TAB.XL.24H PO SCH (08:43)
[2020-03-14] MEDS: ASPIRIN 81 MG TAB.CHEW PO SCH (08:43)
[2020-03-14] MEDS: ESCITALOPRAM 10 MG TABLET PO SCH (08:43)
[2020-03-14] MEDS: LOSARTAN 50 MG TABLET PO SCH (08:44)
[2020-03-14] MEDS: amLODIPine 10 MG TABLET PO SCH (08:44)
[2020-03-14] MEDS: BETHANECHOL 10 MG TABLET PO SCH ×3 (08:45→22:09)
[2020-03-14] MEDS: rOPINIRole 1 MG TABLET PO SCH ×4 (08:45→21:38)
[2020-03-14] MEDS: HEPARIN 5,000 UNIT/ML VIAL SQ SCH ×2 (08:45→21:38)
[2020-03-14] MEDS: INSULIN LISPRO 1 UNIT/0.01 ML UNIT SQ SCH ×4 (08:57→21:55)
[2020-03-14] MEDS ORDERED: CLOPIDOGREL 75 MG TABLET PO SCH (09:00)
[2020-03-14] MEDS ORDERED: LOSARTAN 50 MG TABLET PO SCH (09:00)
[2020-03-14] MEDS ORDERED: ASPIRIN 81 MG PO SCH (09:00)
[2020-03-14] MEDS ORDERED: amLODIPine 5 MG TABLET PO SCH (09:00)
[2020-03-14] MEDS: cefTRIAXone 1 GM VIAL IV SCH (09:03)
--- NOTE | 2020-03-14 11:43 | Discharge Summary ---
Discharge Provider Provider Patient information: Note initiated : 03/14/20 at 11:39 am Service Date, if different from initiated Date: [] Patient: Tianna Reyes 74 y/o F admitted on 03/12/20 for Vomiting, Diarrhea. Chief Complaint: [] Date of admission: 03/12/20 19:52 Discharge date: 03/15/20 Primary care physician: Denver Fox Consults: 03/12/20 17:23 Consult to Physician [CONS] Stat Comment: Consulting Provider: Cosmo Levy Reason For Exam: Physician to Consult Discharge Meds Discharge Medications Home Medications latanoprost 1 gtt OU HS 10/19/15 [History Confirmed 03/13/20 Last Taken Unknown] losartan 50 mg PO DAILY 08/17/18 [History Confirmed 03/13/20 Last Taken Unknown] albuterol sulfate 90 mcg/actuation aerosol inhaler 2 puff INHALATION .q4-6h PRN #8.5 g 09/29/19 [Rx Confirmed 03/13/20 Last Taken Unknown] amlodipine 5 mg tablet 10 mg PO DAILY tab 09/29/19 [History Confirmed 03/13/20 Last Taken Unknown] aspirin 81 mg tablet,delayed release 81 mg PO QDAY 09/29/19 [History Confirmed 03/13/20 Last Taken Unknown] atorvastatin 80 mg tablet 80 mg PO QHS 09/29/19 [History Confirmed 03/13/20 Last Taken Unknown] bethanechol chloride 5 mg tablet 5 mg PO TID tab 09/29/19 [History Confirmed Last Taken Unknown] clopidogrel 75 mg tablet 75 mg PO QDAY 09/29/19 [History Confirmed 03/13/20 Last Taken Unknown] escitalopram oxalate 10 mg tablet 10 mg PO QDAY 09/29/19 [History Confirmed 0 03/13/20 Last Taken Unknown] furosemide 20 mg tablet 20 mg PO QDAY PRN 09/29/19 [History Confirmed 03/13/20 Last Taken Unknown] gabapentin 100 mg capsule 200 mg PO QHS cap 09/29/19 [History Confirmed 03/13/20 Last Taken Unknown] insulin glargine 100 unit/mL subcutaneous solution 23 unit SUB-Q QHS ml 09/29/19 [History Confirmed 03/13/20 Last Taken Unknown] isosorbide mononitrate 30 mg tablet,extended release 24 hr 30 mg PO QAM 09/29/19 [History Confirmed 03/13/20 Last Taken Unknown] magnesium oxide 140 mg capsule 140 mg PO QDAY 02/14/20 [History Confirmed 03/13/20 Last Taken Unknown] nitroglycerin 0.4 mg sublingual tablet 0.4 mg SUBLINGUAL Q5M PRN 02/14/20 [History Confirmed 03/13/20 Last Taken Unknown] ropinirole 2 mg tablet 2 mg PO QID 02/14/20 [History Confirmed 03/13/20 Last Taken Unknown] metformin 500 mg PO BID 03/13/20 [History Confirmed 03/13/20 Last Taken Unknown] tramadol 50 mg PO Q6H PRN 03/13/20 [History Confirmed 03/13/20 Last Taken Unknown] amoxicillin-pot clavulanate [Augmentin] 1 tab PO Q12H #2 tab 03/15/20 [Rx Last Taken Unknown] COURSE Hospital Course Hospital course: History of present illness: Ms. Reyes is a 74 year old F with a history of CKD and hypertension who presented to the ER due to nausea and vomiting. As per patient, today patient developed nausea, vomiting, and diarrhea. She had 3 watery bowel movements. But she denies abdominal pain. She also complains of having coughing for days with a small amount of sputum. In the ER, she was found to have mild fever 100, and oxygen desaturation. Chest x-ray showed no evidence of infiltrate. But as per ER Valentino Alejandre, radiologist felt she could have a clinical pneumonia. When I saw this patient in the ER, other than the symptoms mentioned above, patient denied headache, dizziness, chest pain, shortness of breath, abdominal pain, or dysuria. 03/13 Patient doing very well and feels fine. No new complaints. She is 1.[address] showed - "1. No evidence of pneumonia or other acute cardiopulmonary process. 2. 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 The graft is retracted 8 mm from the [place] wall at the root region which could potentially represent an endoleak. Suggest: cardiology consult and CT thoracic aorta angiogram. 3. Chronic bronchitis with scattered scarring throughout both lungs - stable. 4. Cholelithiasis 5. Small hiatal hernia 6. Multinodular adenomatous thyroid - stable" Discussed to be the metallurgical engineer Dr. Ramsay at [facility] who suggested to contact Dr. Frye But Dr. Thurman is on procedure now. I also called [facility] in [place] and hope to speak to CT surgeon. Ceciliaing for calling back. *CT surgeon Dr. Lee called me back. Dr. Lee believes that if pt does not have big murmur or ischemic symptoms, CT chest may not be accurate. Will order echo. 03/14 feeling better overall, still feels a little ill. no new complaints. No nausea vomiting. When she did have nausea vomiting prior to coming in she had a mask on so suspect she might of had a little of aspiration from the event. 03/15 Slept better and feeling better. Has occasional cough, no noticeable shortness of breath at rest. On 1 L nasal cannula. She states she might be constipated. Echocardiogram as recommended ordered did not give any new information about the graft. I then reviewed case with Dr. Thurman who felt likely result of difference between graft and aneurysmal wall to begin with and that if truly leaking would have clinical symptoms. Patient doing well and is good oxygenation on room air. No chest pain or new complaints. Stable for discharge to SNF A: *Acute gastroenteritis with N/V: none since admit *Acute hypoxic respiratory failure: likely aspiration from above -on 1L NC *?Clinical/early pneumonia vs likely microaspiration from N/V: -Respiratory panel/COVID-19 negative -CT with copd changes *likely COPD based on imaging and smoking history: *UTI: *CKD III: Creatinine has been around 1.3 and 1.4 *DM type 2 with nephropathy: *HTN: *Endovascular graft ?retraction: -Discussed with CT surgeon Dr. Lee who believes if pt doesn't have loud murmur or ischemic symptoms then CT chest may not be accurate and suggested echo, which was unrevealing. I then reviewed case with Dr. Thurman who felt likely result of difference between graft and aneurysmal wall to begin with and that if truly leaking would have clinical symptoms. Discharge diagnosis: Gastroenteritis hypoxia respite failure aspiration UTI chronic kidney disea Secondary discharge diagnosis: Diabetes ?endovascular graft retraction/leak? Time Spent with Patient Time attestation: Total time spent providing and/or coordinating discharge services: Time spent: Greater than 30 minutes EXAM Constitutional Vitals: Temp Pulse Resp BP Pulse Ox 99 F 76 18 138/66 97 03/14/20 06:56 03/14/20 06:56 03/14/20 08:00 03/14/20 06:56 03/14/20 08:00 Discharge Data Data Completed and Pending Labs on day of discharge: Labs from last 24 hours 03/14/20 05:32 Sodium 140 Potassium 4.5 Chloride 102 Carbon Dioxide 26 Anion Gap 12.0 BUN 22 Creatinine 1.3 H GFR Calculation 40 Glucose 65 L Uric Acid 6.3 Calcium 8.8 Phosphorus 3.9 Magnesium 1.6 Total Bilirubin 0.3 Direct Bilirubin < 0.2 GGT 10 AST 16 ALT 8 Alkaline Phosphatase 66 Lactate Dehydrogenase 219 Total Protein 6.0 Albumin 3.3 Globulin 2.7 Albumin/Globulin Ratio 1.2 Triglycerides 109 Preliminary micro results at discharge 03/12/20 19:34 Blood Culture - Preliminary Blood 03/12/20 19:24 Blood Culture - Preliminary Blood Discharge Plan Patient/Caregiver Discharge Instructions Activity: increase activity as tolerated Diet: Consistent Carbohydrate Prescriptions: New amoxicillin-pot clavulanate [Augmentin] 500-125 mg tablet 1 tab PO Q12H Qty: 2 RF: 0 Continued nitroglycerin 0.4 mg tablet, sublingual 0.4 mg SUBLINGUAL Q5M PRN (Reason: Chest Pain) RF: 0 ropinirole 2 mg tablet 2 mg PO QID RF: 0 magnesium oxide 140 mg capsule 140 mg PO QDAY RF: 0 aspirin [Aspir-81] 81 mg tablet,delayed release (DR/EC) 81 mg PO QDAY RF: 0 atorvastatin 80 mg tablet 80 mg PO QHS RF: 0 bethanechol chloride 5 mg tablet 5 mg PO TID RF: 0 clopidogrel [Plavix] 75 mg tablet 75 mg PO QDAY RF: 0 escitalopram oxalate [Lexapro] 10 mg tablet 10 mg PO QDAY RF: 0 furosemide [Lasix] 20 mg tablet 20 mg PO QDAY PRN (Reason: Edema) RF: 0 gabapentin 100 mg capsule 200 mg PO QHS RF: 0 insulin glargine 100 unit/mL solution 23 unit SUB-Q QHS RF: 0 isosorbide mononitrate 30 mg tablet extended release 24 hr 30 mg PO QAM RF: 0 albuterol sulfate [ProAir HFA] 90 mcg/actuation HFA aerosol inhaler 2 puff inhalation .q4-6h PRN (Reason: cough, shortness of breath, wheezing) Qty: 8.5 RF: 0 latanoprost 1 GTT bottle 1 gtt OU HS RF: 0 losartan 50 MG tablet 50 mg PO DAILY RF: 0 amlodipine 5 mg tablet 10 mg PO DAILY RF: 0 tramadol 50 mg Tablet 50 mg PO Q6H PRN (Reason: Breakthrough Pain) RF: 0 metformin 500 mg tablet 500 mg PO BID RF: 0 Follow Up Plan Follow up with: Denver Fox MD [Primary Care Provider] - Patient Disposition: Xfer SNF Prognosis: Fair Rehab Potential: Fair I certify that the patient requires SNF services: Yes Overall status at discharge: patient is progressing back to baseline Discharge Orders: Discharge Order (Routine); Ordered 03/15/20 Ordered By: Tyree Zuniga [facility] VTE Deep Vein Thrombosis/Pulmonary Embolism Present on Admission: No
[2020-03-14] MEDS: ATORVASTATIN 10 MG TABLET PO SCH (19:21)
[2020-03-14] MEDS: GABAPENTIN 100 MG CAPSULE PO SCH (21:38)
[2020-03-14] MEDS: LATANOPROST OPHTH DROPS 2.5ML BOTTLE OU SCH (21:39)
[2020-03-14] MEDS: INSULIN GLARGINE, HUMAN 1 UNIT/0.01 ML SQ SCH (21:54)
[2020-03-15] MEDS: 0.9 % SODIUM CHLORIDE 10 ML SYRINGE IV SCH (05:49)
--- NOTE | 2020-03-15 07:31 | Internal Med Progress Note ---
SUBJECTIVE Subjective Patient information: Note initiated : 03/15/20 at 7:25 am Service Date, if different from initiated Date: [] Patient: Tianna Reyes a 74 y/o F admitted on 03/12/20 for Vomiting, Diarrhea. Chief Complaint: [] Interval history: History of present illness: Ms. Reyes is a 74 year old F with a history of CKD and hypertension who presented to the ER due to nausea and vomiting. As per patient, today patient developed nausea, vomiting, and diarrhea. She had 3 watery bowel movements. But she denies abdominal pain. She also complains of having coughing for days with a small amount of sputum. In the ER, she was found to have mild fever 100, and oxygen desaturation. Chest x-ray showed no evidence of infiltrate. But as per ER Valentino Alejandre, radiologist felt she could have a clinical pneumonia. When I saw this patient in the ER, other than the symptoms mentioned above, patient denied headache, dizziness, chest pain, shortness of breath, abdominal pain, or dysuria. 03/13 Patient doing very well and feels fine. No new complaints. She is 1.[address] showed - "1. No evidence of pneumonia or other acute cardiopulmonary process. 2. 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 The graft is retracted 8 mm from the [place] wall at the root region which could potentially represent an endoleak. Suggest: cardiology consult and CT thoracic aorta angiogram. 3. Chronic bronchitis with scattered scarring throughout both lungs - stable. 4. Cholelithiasis 5. Small hiatal hernia 6. Multinodular adenomatous thyroid - stable" Discussed to be the race engine builder Dr. Ramsay at [facility] who suggested to contact Dr. Lawrence. But Dr. Lawrence is on procedure now. I also called [facility] in [place] and hope to speak to CT surgeon. Ceciliaing for calling back. *CT surgeon Dr. Lee called me back. Dr. Lee believes that if pt does not have big murmur or ischemic symptoms, CT chest may not be accurate. Will order echo. 03/14 feeling better overall, still feels a little ill. no new complaints. No nausea vomiting. When she did have nausea vomiting prior to coming in she had a mask on so suspect she might of had a little of aspiration from the event. Review of Systems: denies headache/fever/chills/nausea/vomiting/chest or abdominal pain/cough/dyspnea/diarrhea. Otherwise see above. Constitutional Vitals: Vital Signs Temp Pulse Resp BP Pulse Ox 98.0 F 65 18 130/64 93 03/15/20 03:45 03/15/20 03:45 03/15/20 03:45 03/15/20 03:45 03/15/20 03:45 Period Temp Pulse Resp BP Sys/[place] Pulse Ox Last 24 Hr 98.0 F-99 F 60-82 18-18 117-146/48-68 88-97 Intake and Output 03/14/20 03/15/20 03/15/20 21:59 05:59 13:59 Intake Total 240 360 Output Total 200 400 450 Balance 40 -40 -450 Weight 92.669 kg Intake & Output: Intake & Output 03/14/20 03/15/20 03/15/20 21:59 05:59 13:59 Intake Total 240 360 Output Total 200 400 450 Balance 40 -40 -450 Weight 92.669 kg Intake: Oral 240 360 Output: Void Amount 200 400 450 Other: Meal Dinner Percent of Meal Consumed 100% Feeding Ability Assist with Tray Set Up Urine Appearance Clear Clear Urine Color Bright Yellow Bright Yellow Urine Odor Normal Normal Exam: General: Alert, Awake, No acute Distress Eyes/N/T: EOMI, Head/Neck: neck supple, CV: RRR, 2/6 SM Pulm: Diminished bilaterally , no rhonchi Abd: soft, nontender, +BS x4 Ext: no clubbing/cyanosis, left leg with minimal edema improved Neuro: Alert, no focal deficits, moves all extremities, Skin: warm/dry OBJ DATA Labs CBC & Chem 7: 03/13/20 05:25 03/14/20 05:32 Labs: Abnormal Lab Results 03/14/20 03/13/20 03/13/20 05:32 05:25 05:25 WBC RBC 3.29 L Hgb 8.9 L Hct 28.9 L MCHC 30.8 L Plt Count 123 L MPV 12.2 H Gran % Lymph % (Auto) Gran # Lymph # (Auto) POC BUN BUN 25 H Creatinine 1.3 H 1.3 H POC Creatinine Glucose 65 L 127 H POC Glucose POC WB Ioniz Calcium Magnesium 1.3 L NT-Pro-B Natriuret Pep 1466.0 H Total Protein 5.6 L Albumin 3.1 L Urine Protein Ur Leukocyte Esterase Urine RBC Urine WBC 03/13/20 03/12/20 03/12/20 00:47 12:50 12:50 WBC 11.9 H RBC Hgb Hct MCHC Plt Count MPV 11.5 H Gran % 83.9 H Lymph % (Auto) 10.2 L Gran # 10.02 H Lymph # (Auto) 1.22 L POC BUN 24 H BUN Creatinine 1.3 H POC Creatinine 1.3 H Glucose 190 H POC Glucose 187 H POC WB Ioniz Calcium 1.15 L Magnesium NT-Pro-B Natriuret Pep Total Protein Albumin Urine Protein 100 A Ur Leukocyte Esterase 250 A Urine RBC 3 H Urine WBC 40 H Meds: Medications Acetaminophen (Tylenol) 650 mg PO Q6HP PRN; Protocol PRN Reason: Per Pain Protocol/Fever > 101 Albuterol Sulfate (Ventolin) 2 puff INH Q4-6HP PRN PRN Reason: cough, shortness of breath, wh Albuterol/Ipratropium (Duoneb) 3 ml NEB Q6HRT PRN PRN Reason: Shortness Of Breath Amlodipine Besylate (Norvasc) 10 mg PO DAILY [facility] Last Admin: 03/14/20 08:44 Dose: 10 mg Documented by: Aspirin (Aspirin) 81 mg PO DAILY [facility] Last Admin: 03/14/20 08:43 Dose: 81 mg Documented by: Atorvastatin Calcium (Lipitor) 80 mg PO DAILY [facility] Bethanechol Chloride (Urecholine) 5 mg PO TID [facility] Last Admin: 03/14/20 22:09 Dose: 5 mg Documented by: Ceftriaxone Sodium (Rocephin) 1 gm IV Q24H [facility] Last Admin: 03/14/20 09:03 Dose: 1 gm Documented by: Dextrose (Dextrose 50%) 0 ml IV UD PRN PRN Reason: Hypoglycemia Diagnostic Test (Pha) (Accu-Chek) 1 each FS ACHS [facility] Last Admin: 03/14/20 21:38 Dose: 1 each Documented by: Escitalopram Oxalate (Lexapro) 10 mg PO QDAY [facility] Last Admin: 03/14/20 08:43 Dose: 10 mg Documented by: Furosemide (Lasix) 20 mg PO QDAY PRN PRN Reason: Edema Gabapentin (Neurontin) 200 mg PO QHS [facility] Last Admin: 03/14/20 21:38 Dose: 200 mg Documented by: Glucose (Insta-Glucose) 15 gm PO PRN PRN PRN Reason: Hypoglycemia Heparin Sodium (Porcine) (Heparin) 5,000 unit SQ Q12 [facility] Last Admin: 03/14/20 21:38 Dose: 5,000 unit Documented by: Insulin Glargine (Lantus) 23 unit SQ QHS [facility] Last Admin: 03/14/20 21:54 Dose: 23 unit Documented by: Insulin Human Lispro (Humalog) 0 unit SQ ACHS [facility]; Protocol Last Admin: 03/14/20 21:55 Dose: 3 units Documented by: Isosorbide Mononitrate (Imdur) 30 mg PO QAM [facility] Last Admin: 03/14/20 08:43 Dose: 30 mg Documented by: Latanoprost (Xalatan Ophth Drops) 1 gtt OU HS [facility] Last Admin: 03/14/20 21:39 Dose: Not Given Documented by: Losartan Potassium (Cozaar) 50 mg PO DAILY [facility] Last Admin: 03/14/20 08:44 Dose: 50 mg Documented by: Nitroglycerin (Nitrostat) 0.4 mg SL Q5M PRN PRN Reason: Chest Pain Ondansetron HCl (Zofran) 4 mg IV Q6HP PRN PRN Reason: Nausea And Vomiting Last Admin: 03/13/20 11:40 Dose: 4 mg Documented by: Ropinirole HCl (Requip) 2 mg PO QID [facility] Last Admin: 03/14/20 21:38 Dose: 2 mg Documented by: Sodium Chloride (Saline Flush) 10 ml IV Q8 [facility] Last Admin: 03/15/20 05:49 Dose: Not Given Documented by: Tramadol HCl (Ultram) 50 mg PO Q6H PRN; Protocol PRN Reason: Breakthrough Pain A/P Narrative A/P Narrative: A: *Acute gastroenteritis with N/V: none since admit *Acute hypoxic respiratory failure: likely aspiration from above -on 1L NC *?Clinical/early pneumonia vs likely microaspiration from N/V: -Respiratory panel/COVID-19 negative -CT with copd changes *likely COPD based on imaging and smoking history: *UTI(e coli): *CKD III: Creatinine has been around 1.3 and 1.4 *DM type 2 with nephropathy:6. HTN *Endovascular graft retraction/endoleak? -Discussed with CT surgeon Dr. Lee who believes if pt doesn't have loud murmur or ischemic symptoms then CT chest may not be accurate and suggested mauro lawrence. -echo unrevealing *hypomag: resolved P: -Abx -IS, wean O2 -d/w CT finding with Dr. 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
--- NOTE | 2020-03-15 07:38 | Internal Med Progress Note ---
SUBJECTIVE Subjective Patient information: Note initiated : 03/15/20 at 7:38 am Service Date, if different from initiated Date: [] Patient: Tianna Reyes a 74 y/o F admitted on 03/12/20 for Vomiting, Diarrhea. Chief Complaint: [] Interval history: History of present illness: Ms. Reyes is a 74 year old F with a history of CKD and hypertension who presented to the ER due to nausea and vomiting. As per patient, today patient developed nausea, vomiting, and diarrhea. She had 3 watery bowel movements. But she denies abdominal pain. She also complains of having coughing for days with a small amount of sputum. In the ER, she was found to have mild fever 100, and oxygen desaturation. Chest x-ray showed no evidence of infiltrate. But as per ER Valentino Alejandre, radiologist felt she could have a clinical pneumonia. When I saw this patient in the ER, other than the symptoms mentioned above, patient denied headache, dizziness, chest pain, shortness of breath, abdominal pain, or dysuria. 03/13 Patient doing very well and feels fine. No new complaints. She is 1.[address] showed - "1. No evidence of pneumonia or other acute cardiopulmonary process. 2. 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 The graft is retracted 8 mm from the crooked creek wall at the root region which could potentially represent an endoleak. Suggest: cardiology consult and CT thoracic aorta angiogram. 3. Chronic bronchitis with scattered scarring throughout both lungs - stable. 4. Cholelithiasis 5. Small hiatal hernia 6. Multinodular adenomatous thyroid - stable" Discussed to be the booking prizer Dr. Ramsay at [facility] who suggested to contact Dr. Thurman. But Dr. Thurman is on procedure now. I also called [facility] in [place] and hope to speak to CT surgeon. Ceciliaing for calling back. *CT surgeon Dr. Lee called me back. Dr. Lee believes that if pt does not have big murmur or ischemic symptoms, CT chest may not be accurate. Will order echo. 03/14 feeling better overall, still feels a little ill. no new complaints. No nausea vomiting. When she did have nausea vomiting prior to coming in she had a mask on so suspect she might of had a little of aspiration from the event. 03/15 Slept better and feeling better. Has occasional cough, no noticeable shortness of breath at rest. On 1 L nasal cannula. She states she might be constipated. Echocardiogram as recommended ordered did not give any new information about the graft. Review of Systems: denies headache/fever/chills/nausea/vomiting/chest or abdominal pa in/cough/dyspnea/diarrhea. Otherwise see above. Constitutional Vitals: Vital Signs Temp Pulse Resp BP Pulse Ox 98.0 F 65 18 130/64 93 03/15/20 03:45 03/15/20 03:45 03/15/20 03:45 03/15/20 03:45 03/15/20 03:45 Period Temp Pulse Resp BP Sys/[place] Pulse Ox Last 24 Hr 98.0 F-99 F 60-82 18-18 117-146/48-68 88-97 Intake and Output 03/14/20 03/15/20 03/15/20 21:59 05:59 13:59 Intake Total 240 360 Output Total 200 400 450 Balance 40 -40 -450 Weight 92.669 kg Intake & Output: Intake & Output 03/14/20 03/15/20 03/15/20 21:59 05:59 13:59 Intake Total 240 360 Output Total 200 400 450 Balance 40 -40 -450 Weight 92.669 kg Intake: Oral 240 360 Output: Void Amount 200 400 450 Other: Meal Dinner Percent of Meal Consumed 100% Feeding Ability Assist with Tray Set Up Urine Appearance Clear Clear Urine Color Bright Yellow Bright Yellow Urine Odor Normal Normal Exam: General: Alert, Awake, No acute Distress Eyes/N/T: EOMI, Head/Neck: neck supple, CV: RRR, 2/6 SM Pulm: minimal rales left base, mildly Diminished bilaterally , no wheezing Abd: soft, nontender, +BS x4 Ext: no clubbing/cyanosis, left leg with minimal edema improved Neuro: Alert, no focal deficits, moves all extremities, Skin: warm/dry OBJ DATA Labs CBC & Chem 7: 03/13/20 05:25 03/14/20 05:32 Labs: Abnormal Lab Results 03/14/20 03/13/20 03/13/20 05:32 05:25 05:25 WBC RBC 3.29 L Hgb 8.9 L Hct 28.9 L MCHC 30.8 L Plt Count 123 L MPV 12.2 H Gran % Lymph % (Auto) Gran # Lymph # (Auto) POC BUN BUN 25 H Creatinine 1.3 H 1.3 H POC Creatinine Glucose 65 L 127 H POC Glucose POC WB Ioniz Calcium Magnesium 1.3 L NT-Pro-B Natriuret Pep 1466.0 H Total Protein 5.6 L Albumin 3.1 L Urine Protein Ur Leukocyte Esterase Urine RBC Urine WBC 03/13/20 03/12/20 03/12/20 00:47 12:50 12:50 WBC 11.9 H RBC Hgb Hct MCHC Plt Count MPV 11.5 H Gran % 83.9 H Lymph % (Auto) 10.2 L Gran # 10.02 H Lymph # (Auto) 1.22 L POC BUN 24 H BUN Creatinine 1.3 H POC Creatinine 1.3 H Glucose 190 H POC Glucose 187 H POC WB Ioniz Calcium 1.15 L Magnesium NT-Pro-B Natriuret Pep Total Protein Albumin Urine Protein 100 A Ur Leukocyte Esterase 250 A Urine RBC 3 H Urine WBC 40 H Meds: Medications Acetaminophen (Tylenol) 650 mg PO Q6HP PRN; Protocol PRN Reason: Per Pain Protocol/Fever > 101 Albuterol Sulfate (Ventolin) 2 puff INH Q4-6HP PRN PRN Reason: cough, shortness of breath, wh Albuterol/Ipratropium (Duoneb) 3 ml NEB Q6HRT PRN PRN Reason: Shortness Of Breath Amlodipine Besylate (Norvasc) 10 mg PO DAILY [facility] Last Admin: 03/14/20 08:44 Dose: 10 mg Documented by: Aspirin (Aspirin) 81 mg PO DAILY [facility] Last Admin: 03/14/20 08:43 Dose: 81 mg Documented by: Atorvastatin Calcium (Lipitor) 80 mg PO DAILY [facility] Bethanechol Chloride (Urecholine) 5 mg PO TID [facility] Last Admin: 03/14/20 22:09 Dose: 5 mg Documented by: Ceftriaxone Sodium (Rocephin) 1 gm IV Q24H [facility] Last Admin: 03/14/20 09:03 Dose: 1 gm Documented by: Dextrose (Dextrose 50%) 0 ml IV UD PRN PRN Reason: Hypoglycemia Diagnostic Test (Pha) (Accu-Chek) 1 each FS ACHS [facility] Last Admin: 09/24/20 21:38 Dose: 1 each Documented by: Escitalopram Oxalate (Lexapro) 10 mg PO QDAY [facility] Last Admin: 03/14/20 08:43 Dose: 10 mg Documented by: Furosemide (Lasix) 20 mg PO QDAY PRN PRN Reason: Edema Gabapentin (Neurontin) 200 mg PO QHS [facility] Last Admin: 03/14/20 21:38 Dose: 200 mg Documented by: Glucose (Insta-Glucose) 15 gm PO PRN PRN PRN Reason: Hypoglycemia Heparin Sodium (Porcine) (Heparin) 5,000 unit SQ Q12 [facility] Last Admin: 03/14/20 21:38 Dose: 5,000 unit Documented by: Insulin Glargine (Lantus) 23 unit SQ QHS [facility] Last Admin: 03/14/20 21:54 Dose: 23 unit Documented by: Insulin Human Lispro (Humalog) 0 unit SQ ACHS [facility]; Protocol Last Admin: 03/14/20 21:55 Dose: 3 units Documented by: Isosorbide Mononitrate (Imdur) 30 mg PO QAM [facility] Last Admin: 03/14/20 08:43 Dose: 30 mg Documented by: Latanoprost (Xalatan Ophth Drops) 1 gtt OU HS [facility] Last Admin: 03/14/20 21:39 Dose: Not Given Documented by: Losartan Potassium (Cozaar) 50 mg PO DAILY [facility] Last Admin: 03/14/20 08:44 Dose: 50 mg Documented by: Nitroglycerin (Nitrostat) 0.4 mg SL Q5M PRN PRN Reason: Chest Pain Ondansetron HCl (Zofran) 4 mg IV Q6HP PRN PRN Reason: Nausea And Vomiting Last Admin: 03/13/20 11:40 Dose: 4 mg Documented by: Ropinirole HCl (Requip) 2 mg PO QID [facility] Last Admin: 03/14/20 21:38 Dose: 2 mg Documented by: Sodium Chloride (Saline Flush) 10 ml IV Q8 [facility] Last Admin: 03/15/20 05:49 Dose: Not Given Documented by: Tramadol HCl (Ultram) 50 mg PO Q6H PRN; Protocol PRN Reason: Breakthrough Pain A/P Narrative A/P Narrative: A: *Acute gastroenteritis with N/V: none since admit *Acute hypoxic respiratory failure: likely aspiration from above -on 1L NC *?Clinical/early pneumonia vs likely microaspiration from N/V: -Respiratory panel/COVID-19 negative -CT with copd changes *likely COPD based on imaging and smoking history: *UTI(e coli): *CKD III: Creatinine has been around 1.3 and 1.4 *DM type 2 with nephropathy:6. HTN *Endovascular graft retraction/endoleak? -Discussed with CT surgeon Dr. Lee who believes if pt doesn't have loud murmur or ischemic symptoms then CT chest may not be accurate and suggested echo. -echo unrevealing *hypomag: resolved P: -Abx -f/u CXR -IS, wean O2 -d/w CT finding with Dr. Thurman -Diabetic diet, Insulin sliding scale, Continue home medication -CM for placement -ppx: heparin CODE STATUS: Supervisor Testing Spent With Patient Time: Total time spent is greater than 50% in coordination of care (as documented) at patient's floor/unit and/or counseling patient: QUALITY Stroke Symptom Onset Unknown: No VTE Deep Vein Thrombosis/Pulmonary Embolism Present on Admission: No
--- NOTE | 2020-03-15 08:30 | XRay Report ---
CLINICAL INFORMATION: suspected aspiration event on admit, f/u eval COMPARISON: 03/12/2020 FINDINGS: The heart is moderately enlarged but unchanged. Pacemaker leads in stable satisfactory position. Mediastinum and pulmonary vessels are normal. Lungs show only minor bibasilar atelectasis. No effusions. Right diaphragm is mildly elevated IMPRESSION: Moderate stable cardiomegaly. No acute disease Interpreted and Authenticated by: Antoine Alvarez 03/15/20
[2020-03-15 08:47] LABS: Hematocrit 30.9 % (34.1-44.9)
[2020-03-15] MEDS ORDERED: POLYETHYLENE GLYCOL 3350 17 GM PACKET PO ONE (08:52)
[2020-03-15] MEDS ORDERED: ATORVASTATIN 40 MG TABLET PO SCH (09:00)
[2020-03-15] MEDS: HEPARIN 5,000 UNIT/ML VIAL SQ SCH (09:05)
[2020-03-15] MEDS: rOPINIRole 1 MG TABLET PO SCH ×2 (09:05→13:19)
[2020-03-15] MEDS: ASPIRIN 81 MG TAB.CHEW PO SCH (09:06)
[2020-03-15] MEDS: ESCITALOPRAM 10 MG TABLET PO SCH (09:06)
[2020-03-15] MEDS: ISOSORBIDE MONONITRATE 30 MG TAB.XL.24H PO SCH (09:06)
[2020-03-15] MEDS: LOSARTAN 50 MG TABLET PO SCH (09:06)
[2020-03-15] MEDS: amLODIPine 10 MG TABLET PO SCH (09:06)
[2020-03-15] MEDS: BETHANECHOL 10 MG TABLET PO SCH (09:17)
[2020-03-15] MEDS: INSULIN LISPRO 1 UNIT/0.01 ML UNIT SQ SCH ×2 (09:18→12:09)
[2020-03-15] MEDS: cefTRIAXone 1 GM VIAL IV SCH (10:19)
== END 2020-03-15 14:30 | DRG 391 ==
LOC: MEDSUR 12:17 → ED 12:17 → OBSVTOIN 19:52 → MEDSUR 19:52
PROVIDERS: ADMIT Internal Medicine; ATTEND Internal Medicine